=== PATIENT | male | born 1990 | race African-American/Black ===

== ENCOUNTER 2020-11-19 09:51 | Outpatient (CLI) | payer OTHER ==
[~2020-11-19] VITALS: Ht 165.1 cm; Wt 75.3 kg
== END 2020-11-19 19:30 | disposition home or self-care (01) ==
LOC: INF 09:51
PROVIDERS: ATTEND Family Medicine
DX: Z23 Encounter for immunization (principal); U07.1 COVID-19
CPT/HCPCS: 96365; M0244